=== PATIENT | male | born 1955 | race Caucasian/White ===

== ENCOUNTER 2023-05-26 10:59 | Outpatient (CLI) | payer BC, SELFPAY ==
[2023-05-26 11:18] VITALS: BP 156/76; PULSE 61; RESP 16; TEMP 36.9; O2SAT 95
[2023-05-26 11:59] VITALS: PULSE 58; RESP 16; O2SAT 98
--- NOTE | 2023-05-26 12:05 | DI.RAD_ITS ---
Exam(s) XR PAIN CLINIC CERVICAL SP 2V EXAM: XR PAIN CLINIC CERVICAL SP 2V CLINICAL HISTORY: DX: cervical spondylosis. TECHNIQUE: Fluoroscopy was provided for the referring physician for guidance with performing pain cl inic injection procedure. COMPARISON: No exams were available for comparison FINDINGS: Please see procedure note for details. Fluoro time: 46.6 seconds RADIATION DOSE DELIVERED: pam Vargas=3.61 mGy
--- NOTE | 2023-05-26 12:07 | PDOC.PAIN_ITS ---
Date of service: 05/26/23 Time of Service: 12:07 Pain Managment Procedure Note Procedure Note Procedure Note: PROCEDURE NOTE LEFT SIDED CERVICAL MEDIAL BRANCH BLOCKS Date of Service: May 26, 2023 Patient: Alex Burnham Provider: Aakash Parham DO, MPH Alex Burnham has been referred to the [facility] for cervical medial branch blocks. Pre-operative diagnosis: Cervical Spondylosis without Myelopathy Post-operative diagnosis: Same Pre-procedure pain: VAS= 7/10 COMMENTS: I previously evaluated him in the clinic and his symptoms remain the s som. He does have a cut on his left lower leg from getting caught in a chain last week. I evaluated the cut and found no sign of infection. He denies any recent drainage. Alex?was interviewed and the medical records were reviewed. There were no medical, pharmacologic, radiographic or other structural contraindications to attempting fluoroscopically guided local anesthetic cervical medial branch blocks. Risks and potential side effects were discussed. I also discussed the potential benefit(s) of the procedure with Alex, and voiced concerns were addressed. After Alex was completely informed about the procedure, the printed consent form was signed. A standard time-out procedure was performed. Alex was placed in the lateral decubitus position on the fluoroscopy table with the effected side up. Automated blood pressure cuff and pulse oximeter were applied. The skin entry points for approaching the anatomic target points of the segmental medial branches of Left C2, C3,C4,C5 were identified with fluoroscopy and marked. The skin at the target site area was thoroughly prepared with Chlorhexadine. The skin was then draped. Next, a 25 gauge 3.5 spinal needle was placed under fluoroscopic guidance down on to the target point (the articular pillar) for each respective segmental medial branch. Position was confirmed in A/P and lateral views. Aspiration revealed no blood or clear fluid. Next, 0.25ml of omnipaque 240 was injected at each level. No contrast following a vascular or neural pattern was visualized under continuous fluoroscopy. Next, 0.25 ml of preservative-free 0.5% bupivicaine was injected at each level. (49 mls of Omnipaque was wasted) There was no unusual discomfort expressed by Alex. The needles were withdrawn without difficulty. Alex was observed and was without hemodynamic, neurologic, or allergic reactions.? Fluoroscopic images were digitally archived. Alex's vital signs were stable throughout the procedure and were as recorded in the docflowsheet by the nursing staff. Provacative testing using the Modified Pendleton's facet loading test Left side Directly before the block VAS (0-10) = 7/10 Five minutes after the block VAS (0-10) = 0/10 Percentage relief obtained with this diagnostic block 100% Any improved physical functioning directly after the blocks? Able to look back and to the left (like he does when he is driving) without pain. Follow up plans and appointments were discussed with Alex. Alex was instructed to keep careful note of how the usual pain was modified by these injections. Specifically, to keep a pain diary for the next 4 hours using a numeric pain scale of 0-10 and report these results. Post procedure instruction was given as documented in the nursing documentation and having met discharge criteria, the patient was [facility] the [facility]. Based on the medial branches blocked today, if Alex has adequate relief and we are able to proceed to radiofrequency ablation, the treatment should result in the denervation of the Left C2-C3, C3-C4 and C4-C5 facet joints. We would expect to denervate a total of 3 facets during the radiofrequency ablation. COMMENTS: No apparent complications. Post-procedure pain: VAS= 0/10 Alex will call back with 0-4 hour post-procedure pain scores. I personally performed the entire procedure. AAKASH PARHAM DO, MPH ABPM&R-subspecialty board certification in Pain Medicine [facility] [facility]
[2023-05-26] MEDS: Bupivacaine 0.5% Pres-Free 10 ML VIAL IJ (12:24)
[2023-05-26] MEDS: Omnipaque 240 MG/ML 50 ML BTL IJ (12:25)
== END 2023-05-26 11:00 | disposition home or self-care (01) ==
LOC: PC 10:59
PROVIDERS: PCP Nurse Practitioner Family; Visit Provider Preventive Medicine Occupational Medicine
DX: M54.2 Cervicalgia (principal); M47.812 Spondylosis without myelopathy or radiculopathy, cervical region
CPT/HCPCS: 64490; 64491; 64492; 72040; Q9967

== ENCOUNTER 2023-06-09 11:44 | Outpatient (CLI) | payer BC, SELFPAY ==
--- NOTE | 2023-06-09 06:00 | DI.RAD_ITS ---
Exam(s) XR PAIN CLINIC CERVICAL SP 2V EXAM: XR PAIN CLINIC CERVICAL SP 2V CLINICAL HISTORY: DX: Cervical spondylosis. TECHNIQUE: 2D and realtime digital imaging was performed. CONTRAST MATERIAL: None COMPARISON: None FINDINGS: Supervised fluoroscopy was provided during pain management therapy of the cervical spine. See proced ure report for details. Radiation exposure index/cumulative dose: Ka,r= 6mGy IMPRESSION: As above. RADIATION DOSE DELIVERED: Ka,r=6mGy
[2023-06-09 11:53] VITALS: BP 124/78; PULSE 61; RESP 20; TEMP 36.6; O2SAT 96
[2023-06-09 12:53] VITALS: BP 153/79; PULSE 55; RESP 16; O2SAT 98
[2023-06-09] MEDS: Bupivacaine 0.5% Pres-Free 10 ML VIAL IJ (13:11)
[2023-06-09] MEDS: Omnipaque 240 MG/ML 50 ML BTL IJ (13:11)
--- NOTE | 2023-06-10 09:59 | PDOC.PAIN_ITS ---
Date of service: 06/09/23 Time of Service: 13:00 Pain Managment Procedure Note Procedure Note Procedure Note: PROCEDURE NOTE LEFT SIDED CERVICAL MEDIAL BRANCH BLOCKS Date of Service: June 09, 2023 Patient: Alex Burnham Provider: Aakash Parham DO, MPH Alex Burnham has been referred to the [facility] for cervical medial branch blocks. Pre-operative diagnosis: Cervical Spondylosis without Myelopathy Post-operative diagnosis: Same Pre-procedure pain: VAS= 9/10 COMMENTS: He did very well with his first CMBB. His left-sided neck pain did re turn. Alex?was interviewed and the medical records were reviewed. There were no medical, pharmacologic, radiographic or other structural contraindications to attempting fluoroscopically guided local anesthetic cervical medial branch blocks. Risks and potential side effects were discussed. I also discussed the potential benefit(s) of the procedure with Alex, and voiced concerns were addressed. After Alex was completely informed about the procedure, the printed consent form was signed. A standard time-out procedure was performed. Alex was placed in the lateral decubitus position on the fluoroscopy table with the effected side up. Automated blood pressure cuff and pulse oximeter were applied. The skin entry points for approaching the anatomic target points of the segmental medial branches of Left C2,C3,C4, and C5 were identified with fluoroscopy and marked. The skin at the target site area was thoroughly prepared with Chlorhexadine. The skin was then draped. Next, a 25 gauge 3.5 spinal needle was placed under fluoroscopic guidance down on to the target point (the articular pillar) for each respective segmental medial branch. Position was confirmed in A/P and lateral views. Aspiration revealed no blood or clear fluid. Next, 0.25ml of omnipaque 240 was injected at each level. No contrast following a vascular or neural pattern was visualized under continuous fluoroscopy. Next, 0.25 ml of preservative-free 0.5% bupivicaine was injected at each level. (49 mls of Omnipaque was wasted) There was no unusual discomfort expressed by Alex. The needles were withdrawn without difficulty. Alex was observed and was without hemodynamic, neurologic, or allergic reactions.? Fluoroscopic images were digitally archived. Alex's vital signs were stable throughout the procedure and were as recorded in the docflowsheet by the nursing staff. Provacative testing using the Modified Pendleton's facet loading test Left side Directly before the block VAS (0-10) = 9/10 Five minutes after the block VAS (0-10) = 3/10 Percentage relief obtained with this diagnostic block 80% Any improved physical functioning directly after the blocks? He had more motion to the neck Follow up plans and appointments were discussed with Alex. Alex was instructed to keep careful note of how the usual pain was modified by these injections. Specifically, to keep a pain diary for the next 4 hours using a numeric pain scale of 0-10 and report these results. Post procedure instruction was given as documented in the nursing documentation and having met discharge criteria, the patient was [facility] from the [facility] Based on the medial branches blocked today, if Alex has adequate relief and we are able to proceed to radiofrequency ablation, the treatment should result in the denervation of the Left C2-C3, C3-C4 and C4-C5 facet joints. We would expect to denervate a total of 3 facets during the radiofrequency ablation. COMMENTS: The patient was a bit dizzy after the procedure. His vital signs were normal and stable and comparable to his pre-procedure vital signs. We did keep him in a room and monitored for 45 minutes with his present. He did eat an d drink and felt better. He stated that he did get dizzy when wearing a mask for extended periods of time. He was wheeled outside with his and was able to remove his mask, at which time he felt much better and was discharged. He knows that he can return to an ER if he begins to feel dizziness again. They will contact me if this happens. Post-procedure pain: VAS= 3/10 Alex will call back with 0-4 hour post-procedure pain scores. I personally performed the entire procedure. AAKASH PARHAM DO, MPH ABPM&R-subspecialty board certification in Pain Medicine [facility]
== END 2023-06-09 11:45 | disposition home or self-care (01) ==
PROVIDERS: PCP Physician Assistant Medical; Visit Provider Preventive Medicine Occupational Medicine
DX: M47.812 Spondylosis without myelopathy or radiculopathy, cervical region (principal)
CPT/HCPCS: 64490; 64491; 64492; 72040; Q9967

== ENCOUNTER 2023-08-31 12:48 | Outpatient (CLI) | payer BC, SELFPAY ==
--- NOTE | 2023-08-31 06:00 | DI.RAD_ITS ---
Exam(s) XR PAIN CLINIC CERVICAL SP 2V EXAM: XR PAIN CLINIC CERVICAL SP 2V CLINICAL HISTORY: Dx: Cervical Spondylosis TECHNIQUE: 2D and realtime digital imaging was performed. CONTRAST MATERIAL: Refer to procedure report. COMPARISON: No exams were available for comparison FINDINGS: Fluoroscopy was provided for Dr. Parham during the performance of a cervical radiofrequency ablation. Please refer to the procedure report for complete details. Ka,r=10.2 mGy IMPRESSION:
[2023-08-31 13:04] VITALS: BP 153/62; PULSE 53; RESP 20; TEMP 36.7; O2SAT 98
[2023-08-31] MEDS: Midazolam 2 MG/2 ML VIAL IVP (13:44)
[2023-08-31] MEDS: fentaNYL 100 MCG/2 ML VIAL IVP ×2 (13:45→13:49)
[2023-08-31] MEDS: Lactated Ringers 500 ML 80 ML IV (13:46)
[2023-08-31 14:14] VITALS: BP 144/64; PULSE 53; RESP 20; O2SAT 96
[2023-08-31] MEDS: Lidocaine 2% Pres-Free 5 ML VIAL IJ (14:39)
[2023-08-31] MEDS: Bupivacaine 0.5% Pres-Free 10 ML VIAL IJ (14:39)
[2023-08-31] MEDS: Dexamethasone Sod. Phos./Pres-Free 10 MG/ML VIAL IJ (14:40)
--- NOTE | 2023-08-31 16:23 | PDOC.PAIN_ITS ---
Date of service: 08/31/23 Time of Service: 14:00 Pain Managment Procedure Note Procedure Note Procedure Note: PROCEDURE NOTE LEFT Cervical Radiofrequency Ablation Date of Service: August 31, 2023 Patient:Alex Waters? Provider:? Aakash Parham DO, MPH Alex Burnham has been [facility] to [facility] for LEFT Cervical Radiofrequency Ablation with the [employer] Machine.? Pre Operative Diagnosis: Cervical Spondylosis without Myelopathy Post Operative Diagnosis: Same Pre procedure pain; VAS= 3/10 Comments: Good relief with the CMBBs X 2 - the pain has returned. PROCEDURE: 1. Left C2-C3 facet joint radiofrequency denervation 2. Left C3-C4 facet joint radiofrequency denervation 3. Left C4-C5 facet joint radiofrequency denervation Alex?was interviewed and the medical record was reviewed.? There were no medical, pharmacologic, radiographic or other structural contraindications to attempting fluoroscopically guided LEFT Cervical Radiofrequency Ablation.?Risks and expected side effects as well as potential benefit of the procedure were reviewed with Alex, and the patient's voiced concerns were addressed.? The printed consent form was signed.? Standard time-out procedure was performed. Alex was brought to the procedure suite and placed on the exam table in a comfortable lateral recumbent position. A grounding pad was placed on the left abdomen. The place for the needle placement was obtained by manual palpation as well as radiographic confirmation. The sterile field was prepped by chlorhexidine and sterile drapes. Local anesthesia, both superficial and deep was provided by local infiltration of 3 ml Lidocaine 1%. Using fluoroscopic guidance, A 17g 50 mm radiofrequency introducer needle with a 2 mm active tip was placed overlying the left C2 cervical vertebra from the lateral approach and was advanced until bony contact was felt with the articular pillar. Attempted aspiration revealed no blood or cerebrospinal fluid. Motor testing was then performed with 2.0 volts and no upper extremity motor stimulation was observed. 1 ml of 2% Lidocaine was injected through the RF needle. A radiofrequency lesion of the Left medial branch of C2 (TON) was then performed at 80 degrees Celsius for 2 minutes and 30 seconds. There was no unusual discomfort expressed by Alex. The needles were withdrawn without difficulty. Alex was observed and was without hemodynamic, neurologic, or allergic reactions. Fluoroscopic images were digitally archived. The same procedure was repeated for Left C3, C4 and C5 medial branches. POST PROCEDURE EVALUATION: IMPRESSION: 1. Medication given is documented in the MAR 2. Follow up plan: Alex to contact [facility] as needed. This procedure may be repeated if the patient achieves at least 50% improvement in pain and/or function for at least 6 months. 3. Estimated Blood Loss: <5ml 4. Fluoroscopy time: Documented in the EMR Follow up plans and appointments were discussed with Alex. Post procedure instruction was given as documented in nursing documentation and having met discharge criteria, Alex was discharged from the [facility]. COMMENTS: No apparent complications. Post-procedure pain: VAS= 6/10. He was sore from the position he was in for the procedure. I personally performed this entire procedure. AAKASH PARHAM DO, MPH ABPM&R - Subspecialty board certification in Pain Medicine [facility] [facility]
== END 2023-08-31 12:49 | disposition home or self-care (01) ==
LOC: PC 12:48
PROVIDERS: PCP Family Medicine; Visit Provider Preventive Medicine Occupational Medicine
DX: M47.812 Spondylosis without myelopathy or radiculopathy, cervical region (principal)
CPT/HCPCS: 123; 64633; 64634; 72040; 00123; J2250; J3010

== ENCOUNTER 2025-05-24 03:49 | Outpatient (CLI) | payer BC, SELFPAY ==
--- NOTE | 2025-05-24 14:00 | DI.RAD_ITS ---
Exam(s) RF JOINT INJ. FLUORO GUID RAD EXAM: RF JOINT INJ. FLUORO GUID RAD CLINICAL HISTORY: RT SHOULDER GH CORTISONE INJECTION M25.511 PAIN RT SHOULDER. TECHNIQUE: 2D and realtime digital imaging was performed. CONTRAST MATERIAL: Intra-articular Omnipaque 300 1.5 cc COMPARISON: No exams were available for comparison FINDINGS: This fluoroscopic guided right shoulder glenohumeral joint steroid injection was performed at the request of the referring orthopedic surgeon. Patient was consented prior to this procedure. The patient was placed in the supine position on the fluoroscopy table. Using sterile technique and adequate skin-subcutaneous anesthesia, fluoroscopic guidance was used to advance a 22 gauge spinal needle into the glenohumeral joint via an anterior approach. Intra-articular position was confirmed with injection of 1.5 cc Omnipaque 300. Thereafter a sterile solution of 3 cc 0.25 percent bupivacaine and 40 milligrams Depo-Medrol was injected into the joint space through the indwelling needle. It was noted that some of the injected intra-articular contrast passed through the region of the supraspinatus into the subacromial space subjacent to the level of the previously surgically widened AC joint. This indicates a full- thickness rotator cuff tendon tear. The patient tolerated this procedure well and there were no intraprocedural complications. IMPRESSION: 1. Successful right shoulder glenohumeral joint steroid injection using fluoroscopic guidance. 2. The subacromial space is significantly diminished in height and there was extravasation of injected intra-articular contrast into the subacromial space, this indicating the presence of a full-thickness rotator cuff supraspinatus tear. Please note that presence of this tear indicate that a significant amount of injected intra-articular steroid may depart the joint space, decreasing the effectiveness of this intra-articular injection. 3. In addition, there is a radiopaque fastener device in the anterior aspect of the humeral head noted which is most probably related to prior biceps tenodesis. The widened ipsilateral AC joint is most probably also from prior surgical decompression. RADIATION DOSE DELIVERED: pam Vargas=2.71mGy
[2025-05-24] MEDS: Omnipaque 300 MG/ML 10 ML BTL IJ (14:48)
[2025-05-24] MEDS: Bupivacaine 0.25% Pres-Free 10 ML VIAL IJ (14:50)
[2025-05-24] MEDS: Lidocaine 1% Pres-Free 30 ML VIAL IJ (14:51)
== END 2025-05-24 04:09 ==
LOC: DI 03:49
PROVIDERS: PCP Family Medicine; Visit Provider Radiology Diagnostic Radiology
DX: M25.511 Pain in right shoulder (principal)
CPT/HCPCS: 20610; 77002; J0665